=== PATIENT | female | born 1945 | race Caucasian/White ===

== ENCOUNTER 2022-11-01 10:57 | Inpatient (IN) ==
--- NOTE | 2022-11-01 11:41 | Emergency Department Note ---
Impression & Plan Bilateral pulmonary embolism, Hypoxia ED Provider Note Provider: Daniel Stahl MD DATE OF SERVICE: 11/01/2022 CHIEF COMPLAINT: Shortness of breath HISTORY OF PRESENT ILLNESS: Patient is a 77-year-old female complete a month ago diagnosed with temporal arteritis currently on steroids weaning to 30 mg daily this week presenting with concern over the last several days of developing dyspnea on exertion and some shortness of breath. No pain. Reports that she was doing well but then got the flu shot on Saturday. Since then has developed shortness of breath. They when ambulating with some exertion. Denies any chest pain. No syncope reported. A bit of a dry cough. No significant sinus congestion or sore throat. No true fevers reported. Denies significant abdominal discomfort or issues. States he does have a little bit of facial swelling but that is been ongoing since has been on the steroid for her GCA. Reports that the eye vision and head symptoms she had before are resolved regarding the GCA. He is scheduled to fly out of state this coming week and wanted evaluation for this. Has been followed closely by family and friends regarding her symptoms. Denies any significant leg swelling. States she had a negative COVID test recently and would prefer not to have a repeat. Denies heart issues. Very distant smoker decades ago. Has been undergoing outpatient work-up for new onset of renal dysfunction with a creatinine of 1.8-2 new in nature. PAST MEDICAL HISTORY: As noted above MEDICATIONS: Reviewed home medications includes current prednisone taper SOCIAL HISTORY: Distant former smoker PHYSICAL EXAM: GENERAL: alert and oriented in no acute distress on stretcher Head: normocephalic and atraumatic EYES: No injection, discharge or icterus. NECK: Trachea midline. ENT: Mucous membranes pink and moist. LUNGS: Airway patent. No retractions. Breath sounds clear with good air entry bilaterally. HEART: Regular rate and rhythm. No chest wall tenderness ABDOMEN: Soft and non-tender, without guarding or rebound. SKIN: Acyanotic, warm, dry, without rashes EXTREMITIES: Without swelling, tenderness or deformity NEUROLOGICAL: No focal deficits. No aphasia. No facial droop or slurred speech. Ambulatory. EK bpm normal sinus rhythm. No PVC or PAC. No acute ST segment elevation or depression with a QTc of 466. CONTINUOUS CARDIAC MONITORING: was ordered and showed a heart rate of 70s-80s bpm in normal sinus rhythm Patient's laboratory studies and imaging reviewed. Differential includes Reactive airway disease, pneumonia, pneumothorax, COPD, CHF, infections, cardiac ischemia, pulmonary embolism, musculoskeletal, gastrointestinal, as well as other pathologies. IMPRESSION/MEDICAL DECISION MAKING: Patient well-appearing on exam. Not hypoxic at rest. Reports some dyspnea on exertion symptoms. Developed since a flu shot. Not having other neurological symptoms or weakness and doubt GBS. X-ray obtained to exclude pneumonia. Doubt pneumothorax. Family and friends of concerns for possible PE especially in light of upcoming travel. Patient's worsened renal function is a concern to use contrast. Patient again hesitant to have repeat COVID or flu testing at this point and wished to defer. EKG and troponin sent but lower suspicion this is acute ACS. Did not seem to be that consistent with heart failure. D-dimer sent as well as basic blood work and get a chest x-ray obtained. May need to pursue VQ scan. Blood work here with mild leukocytosis likely reactive in the setting of significant steroid usage. Minimal anemia 11.5. Normal platelet count. No significant electrolyte abnormality for BUN slightly elevated at 44 and a creatinine 1.5 is noted. No evidence of hepatitis. BNP within normal limits. High-sensitivity troponin minimally elevated at 25.2. While resting on room air patient oxygen levels between the high 80s and low 90s. Creatinine today of 1.57 with a GFR of 31.9. Not having active chest pain and EKG is reassuring but I wonder if slight troponin elevation may be from some transient hypoxia. CT angiogram of the chest completed with evidence of extensive bilateral pulmonary embolisms but no saddle embolism. Hypercoagulable work-up ordered as well as ultrasounds of the legs. Discussed with the patient. Given her mild hypoxia with extensive PE nature and will start on heparin drip with bolus. She is agreeable to stay which believe is reasonable given the extensive nature tonight for further monitoring. Per her wishes updated Dr. Daly via phone. Hospitalist team contacted for admission. DIAGNOSIS: Bilateral pulmonary embolisms, hypoxia DISPOSITION: Hospitalist will evaluate Patient was agreeable with this plan. Critical Care I have personally spent 36 minutes of critical care time in the direct management of this patient. This includes bedside care, interpretation of diagnostic studies, and testing, discussion with consultants, patient, and other required patient management activities. These 36 minutes is in excess of all separately billable procedures. Past Med/Surg History Social History Smoking Status: Former smoker Feels Safe at Home: Yes Allergies Allergies Allergy/AdvReac Type Severity Reaction Status Date / Time pecans Allergy Uncoded 10/31/22 16:50 Home Meds Home Medications Medication Instructions Recorded Confirmed albuterol sulfate 90 mcg/actuation 2 puff inhalation Q6H PRN other 10/31/22 11/01/22 aerosol inhaler (Ventolin HFA) alprazolam 0.5 mg tablet 0.25 mg PO HS PRN Other 10/31/22 11/01/22 calcium carbonate 1,000 mg-vitamin 1 tab PO DAILY 10/31/22 11/01/22 D3 20 mcg (800 unit) tablet cholecalciferol (vitamin D3) 50 5,000 unit PO DAILY 10/31/22 11/01/22 mcg (2,000 unit) capsule citalopram 20 mg tablet 20 mg PO DAILY 10/31/22 11/01/22 diclofenac sodium 75 mg 75 mg PO BID PRN Pain 10/31/22 11/01/22 tablet,delayed release fluticasone 250 mcg-salmeterol 50 1 inh inhalation BID 10/31/22 11/01/22 mcg/dose blistr powdr for inhalation (Advair Diskus) levothyroxine 75 mcg tablet 75 mcg PO DAILY 10/31/22 11/01/22 multivitamin 1 tab PO DAILY 10/31/22 11/01/22 pravastatin 40 mg tablet 40 mg PO DAILY 10/31/22 11/01/22 prednisone 20 mg tablet 30 mg PO DAILY 10/31/22 11/01/22 valacyclovir 1 gram tablet 1,000 mg PO TID 10/31/22 11/01/22 (Valtrex) vitamin K2 100 mcg capsule 100 mcg PO DAILY 10/31/22 11/01/22 alendronate 35 mg tablet 35 mg PO WK 11/01/22 11/01/22 nystatin 100,000 unit/mL oral See Rx Instructions .Route .COMPLEX 11/01/22 11/01/22 suspension Results & Data (ED) Vital Signs Vital Signs - 24 hr 11/01/22 10:58 11/01/22 11:51 11/01/22 11:36 Temperature 36.7 C Temperature Source Temporal Artery Scan Pulse Rate 84 86 Pulse Rate [Bilateral] 74 Pulse Rhythm Pulse Rhythm [Bilateral] Regular Respiratory Rate 20 18 Respiratory Effort / Characteristics Non-Labored Spontaneous Respiratory Depth Normal Blood Pressure 204/112 H Blood Pressure [Right Arm] 170/108 H Blood Pressure Mean 142 Blood Pressure Mean [Right Arm] 128 Pulse Oximetry 91 92 Oxygen Delivery Method Room Air Room Air Oxygen Flow Rate Sepsis Recent Fever Within 48 Hours No Sepsis New/Unexplained Change in Mental Status No Sepsis Action Taken by Nursing No Action Required 11/01/22 11:36 11/01/22 12:06 11/01/22 13:10 Temperature Temperature Source Pulse Rate 74 Pulse Rate [Bilateral] 71 Pulse Rhythm Regular Pulse Rhythm [Bilateral] Respiratory Rate 18 Respiratory Effort / Characteristics Respiratory Depth Blood Pressure Blood Pressure [Right Arm] 165/105 H Blood Pressure Mean Blood Pressure Mean [Right Arm] 125 Pulse Oximetry 92 92 95 Oxygen Delivery Method Room Air Room Air Room Air Oxygen Flow Rate Sepsis Recent Fever Within 48 Hours Sepsis New/Unexplained Change in Mental Status Sepsis Action Taken by Nursing 11/01/22 13:24 11/01/22 13:24 Temperature Temperature Source Pulse Rate Pulse Rate [Bilateral] Pulse Rhythm Pulse Rhythm [Bilateral] Respiratory Rate Respiratory Effort / Characteristics Respiratory Depth Blood Pressure Blood Pressure [Right Arm] Blood Pressure Mean Blood Pressure Mean [Right Arm] Pulse Oximetry 85 L 92 Oxygen Delivery Method Room Air Nasal Cannula Oxygen Flow Rate 2 Sepsis Recent Fever Within 48 Hours Sepsis New/Unexplained Change in Mental Status Sepsis Action Taken by Nursing Laboratory Data 11/01/22 11:45 11/01/22 11:45 Lab Results 11/01/22 11/01/22 11/01/22 Range/Units 11:45 11:45 11:45 WBC 14.37 H (4.8-10.8) K/ul RBC 3.47 L (4.20-5.40) M/uL Hgb 11.5 L (12.0-16.0) g/dl Hct 33.8 L (37.0-47.0) % MCV 97.4 (80.0-100.0) fL MCH 33.1 (25.0-34.0) pg MCHC 34.0 (32.0-36.0) g/dL RDW Std Deviation 54.6 H (36.4-46.3) fL RDW Coeff of Paulina 15.4 H (11.5-14.5) % Plt Count 174 (130-400) K/uL MPV 9.3 L (9.4-12.4) fL Immature Gran % (Auto) 1.9 % Neut % (Auto) 87.5 % Lymph % (Auto) 7.4 % [place] % (Auto) 3.1 % Eos % (Auto) 0.0 % Baso % (Auto) 0.1 % Neut # (Auto) 12.57 H (1.40-6.50) K/uL Lymph # (Auto) 1.06 L (1.20-3.40) K/uL [place] # (Auto) 0.45 (0.11-0.59) K/uL Eos # (Auto) 0.00 (0.00-0.50) K/uL Baso # (Auto) 0.02 (0.00-0.20) K/uL Immature Gran # (Auto) 0.27 H (0.01-0.20) K/uL PT 10.6 (9.0-12.0) Seconds INR 1.0 (0.9-1.1) APTT 25.1 (21.0-31.0) Seconds PTT Ratio 0.9 D-Dimer 69209 H* (0-500) ug/L FEU Sodium 138 (136-145) mmol/L Potassium 4.4 (3.5-5.1) mmol/L Chloride 101 (98-107) mmol/L Carbon Dioxide 29 (21-32) mmol/L Anion Gap 8 (3-11) BUN 44 H (6-23) mg/dl Creatinine 1.57 H (0.6-1.2) mg/dl Est Cr Clr Drug Dosing 30.5 ml/min Est GFR ( Amer) 37.0 ml/min Est GFR (Non-Af Amer) 31.9 ml/min BUN/Creatinine Ratio 28.0 H (10-20) Glucose 141 H (70-99(Fasting)) mg/dl Calcium 9.6 (8.6-10.3) mg/dl Magnesium 2.0 (1.7-2.4) mg/dl Total Bilirubin 0.5 (0.2-1.0) mg/dl AST 15 (13-39) U/L ALT 20 (7-52) U/L Alkaline Phosphatase 53 (34-104) U/L Troponin I High Sens 25.2 H (0-14) pg/ml B-Natriuretic Peptide (0-100) pg/ml Total Protein 6.6 (6.0-8.3) gm/dl Albumin 3.5 (3.4-5.0) gm/dl Globulin 3.1 (2.5-4.0) gm/dl Albumin/Globulin Ratio 1.1 (0.9-2) 11/01/22 11/01/22 Range/Units 11:45 14:52 WBC (4.8-10.8) K/ul RBC (4.20-5.40) M/uL Hgb (12.0-16.0) g/dl Hct (37.0-47.0) % MCV (80.0-100.0) fL MCH (25.0-34.0) pg MCHC (32.0-36.0) g/dL RDW Std Deviation (36.4-46.3) fL RDW Coeff of Paulina (11.5-14.5) % Plt Count (130-400) K/uL MPV (9.4-12.4) fL Immature Gran % (Auto) % Neut % (Auto) % Lymph % (Auto) % [place] % (Auto) % Eos % (Auto) % Baso % (Auto) % Neut # (Auto) (1.40-6.50) K/uL Lymph # (Auto) (1.20-3.40) K/uL [place] # (Auto) (0.11-0.59) K/uL Eos # (Auto) (0.00-0.50) K/uL Baso # (Auto) (0.00-0.20) K/uL Immature Gran # (Auto) (0.01-0.20) K/uL PT (9.0-12.0) Seconds INR (0.9-1.1) APTT (21.0-31.0) Seconds PTT Ratio D-Dimer (0-500) ug/L FEU Sodium (136-145) mmol/L Potassium (3.5-5.1) mmol/L Chloride (98-107) mmol/L Carbon Dioxide (21-32) mmol/L Anion Gap (3-11) BUN (6-23) mg/dl Creatinine (0.6-1.2) mg/dl Est Cr Clr Drug Dosing ml/min Est GFR ( Amer) ml/min Est GFR (Non-Af Amer) ml/min BUN/Creatinine Ratio (10-20) Glucose (70-99(Fasting)) mg/dl Calcium (8.6-10.3) mg/dl Magnesium (1.7-2.4) mg/dl Total Bilirubin (0.2-1.0) mg/dl AST (13-39) U/L ALT (7-52) U/L Alkaline Phosphatase (34-104) U/L Troponin I High Sens 25.1 H (0-14) pg/ml B-Natriuretic Peptide 86 (0-100) pg/ml Total Protein (6.0-8.3) gm/dl Albumin (3.4-5.0) gm/dl Globulin (2.5-4.0) gm/dl Albumin/Globulin Ratio (0.9-2) Administered Medications Discontinued Medications Ioversol (Ioversol 350 Mg 125ml Prefilled Syringe) 120 ml IV ONCE ONE Stop: 11/01/22 14:31 Last Admin: 11/01/22 14:31 Dose: 120 ml Documented By: KOURTNEY Imaging Data Radiologist's Impression: Chest X-Ray 11/01/22 11:23 SINGLE VIEW CHEST CLINICAL HISTORY: Dyspnea FINDINGS: An AP, portable, upright chest radiograph is obtained. No prior studies are available for comparison at the time of dictation. The heart is top normal for projection noting atherosclerotic calcification of the thoracic aorta. There is mild bibasilar scarring/atelectasis. The lungs and pleural spaces are otherwise clear. No pneumothorax is seen. The skeletal structures are osteopenic. The bony thorax is grossly intact. IMPRESSION: No active disease in the chest. ACT 112: Negative or not required by law. Electronically signed by: Micheal Watson M.D. 11/01/2022 12:04 PM Chest CTA 11/01/22 13:49 CT angio chest PE protocol CLINICAL HISTORY: PE, Dimer [id number], hypoxia TECHNIQUE: Multidetector row helical CT of the chest was performed with angiographic protocol. Coronal and sagittal reformations were obtained. Coronal and sagittal MIPS were obtained from the axial data set and were submitted for review. Automated dose lowering techniques and/or adjustment according to patient size were utilized for this exam. CT DOSE: 837.25 mGy.cm Comparison: None available at the time of this dictation. FINDINGS: Lungs and pleura: Normal. Heart and pericardium: Heart size is normal. No pericardial effusion. Vessels: Extensive pulmonary emboli are seen most prominently in the right upper lobe and bilateral lower lobes as well as in the distal right mainstem bronchus. Mediastinum and fifi: Unremarkable. Chest wall and lower neck: Unremarkable. Abdomen: Left adrenal nodule is seen likely representing an adenoma. Bones: Degenerative changes in the thoracic spine. IMPRESSION: Multiple lobar, segmental, and subsegmental pulmonary emboli are seen bilaterally without evidence of right heart strain. ACT 112: Negative or not required by law. Electronically signed by: Virgil Walls M.D. 11/01/2022 3:10 PM Discharge Plan Visit Data Chief Complaint: Shortness of Breath/Dyspnea Stated Complaint: SOB ED Provider: Daniel Stahl Discharge Problem: Bilateral pulmonary embolism, Hypoxia Patient Disposition: Being Evaluated by Hospitalist Forms Stand Alone Forms: My [facility] Prescriptions Prescriptions: No Action prednisone 20 mg tablet 30 mg PO DAILY Rx Instructions: Started 30 mg daily for 7 days today 11/01/22 alprazolam 0.5 mg tablet 0.25 mg PO HS PRN (Reason: Other) citalopram 20 mg tablet 20 mg PO DAILY albuterol sulfate [Ventolin HFA] 90 mcg/actuation HFA aerosol inhaler 2 puff inhalation Q6H PRN (Reason: other) pravastatin 40 mg tablet 40 mg PO DAILY levothyroxine 75 mcg tablet 75 mcg PO DAILY fluticasone propion-salmeterol [Advair Diskus] 250-50 mcg/dose blister with device 1 inh inhalation BID valacyclovir [Valtrex] 1 gram tablet 1,000 mg PO TID diclofenac sodium 75 mg tablet,delayed release (DR/EC) 75 mg PO BID PRN (Reason: Pain) vitamin K2 100 mcg capsule 100 mcg PO DAILY multivitamin Tablet 1 tab PO DAILY calcium carbonate-vitamin D3 1,000 mg-20 mcg (800 unit) tablet 1 tab PO DAILY cholecalciferol (vitamin D3) 50 mcg (2,000 unit) capsule 5,000 unit PO DAILY nystatin 100,000 unit/mL suspension See Rx Instructions .ROUTE .COMPLEX Rx Instructions: 1 ml po qid 10 days alendronate 35 mg tablet 35 mg PO WK Rx Instructions: Mondays Referrals Referrals: Giovanny Rehman [Primary Care Provider] -
--- NOTE | 2022-11-01 12:05 | XRay Report ---
SINGLE VIEW CHEST CLINICAL HISTORY: Dyspnea FINDINGS: An AP, portable, upright chest radiograph is obtained. No prior studies are available for c omparison at the time of dictation. The heart is top normal for projection noting atherosclerotic ciara cification of the thoracic aorta. There is mild bibasilar scarring/atelectasis. The lungs and pleural spaces are otherwise clear. No pneumothorax is seen. The skeletal structures are osteopenic. The bon y thorax is grossly intact. IMPRESSION: No active disease in the chest. ACT 112: Negative or not required by law. Electronically signed by: Micheal Watson M.D. 11/01/2022 12:04 PM
[2022-11-01 12:24] LABS: Basophils # (auto) 0.02 K/uL (0.00-0.20); Basophils % (auto) 0.1 %; Hematocrit (blood only) 33.8 % (37.0-47.0); Hemoglobin 11.5 g/dl (12.0-16.0); Immature Granulocytes # (auto) 0.27 K/uL (0.01-0.20); Immature Granulocytes % (auto) 1.9 %; Lymphocytes # (auto) 1.06 K/uL (1.20-3.40); Lymphocytes % (auto) 7.4 %; Mean Corpuscular Hemoglobin 33.1 pg (25.0-34.0); Mean Corpuscular Volume 97.4 fL (80.0-100.0); Mean Platelet Volume 9.3 fL (9.4-12.4); Monocytes # (auto) 0.45 K/uL (0.11-0.59); Monocytes % (auto) 3.1 %; Neutrophils # (auto) 12.57 K/uL (1.40-6.50); Neutrophils % (auto) 87.5 %; Platelet Count 174 K/uL (130-400); RDW Coefficient of Variation 15.4 % (11.5-14.5); RDW Standard Deviation 54.6 fL (36.4-46.3); Red Blood Count 3.47 M/uL (4.20-5.40); White Blood Count 14.37 K/ul (4.8-10.8)
[2022-11-01 12:41] LABS: Alanine Aminotransferase 20 U/L (7-52); Albumin Globulin Ratio 1.1 (0.9-2); Albumin Level 3.5 gm/dl (3.4-5.0); Alkaline Phosphatase 53 U/L (34-104); Anion Gap 8 (3-11); Aspartate Aminotransferase 15 U/L (13-39); Bilirubin,Total 0.5 mg/dl (0.2-1.0); Blood Urea Nitrogen 44 mg/dl (6-23); Calcium 9.6 mg/dl (8.6-10.3); Carbon Dioxide 29 mmol/L (21-32); Chloride 101 mmol/L (98-107); Creatinine Clr Calc Pharmacy 30.5 ml/min; Est GFR (Non-African American) 31.9 ml/min; Globulin 3.1 gm/dl (2.5-4.0); Glucose 141 mg/dl (70-99(Fasting)); Potassium 4.4 mmol/L (3.5-5.1); Sodium 138 mmol/L (136-145); Total Protein 6.6 gm/dl (6.0-8.3)
[2022-11-01 12:46] LABS: Troponin I High Sensitivity 25.2 pg/ml (0-14)
[2022-11-01 13:10] LABS: Partial Thromboplastin Ratio 0.9; Partial Thromboplastin Time 25.1 Seconds (21.0-31.0); Prothrombin Time 10.6 Seconds (9.0-12.0)
[2022-11-01 13:18] LABS: D Dimer 24500 ug/L FEU (0-500)
[2022-11-01] MEDS ORDERED: IOVERSOL 350 MG 125mL Prefilled Syringe IV ONE (14:30)
[2022-11-01] MEDS ORDERED: LACTATED RINGER'S 500 ML IV ONE (14:31)
[2022-11-01] MEDS ORDERED: Heparin IV Adult Wt-Based Standard WITH Bolus Protocol IV STA (14:48)
[2022-11-01] MEDS ORDERED: Heparin IV Adult Wt-Based Standard WITH Bolus Protocol IV SCH (15:00)
[2022-11-01] MEDS ORDERED: HEPARIN SOD (PORCINE) 1000 UNIT/ML IV ONE ×2 (15:03→16:30)
--- NOTE | 2022-11-01 15:12 | CT Scan Report ---
CT angio chest PE protocol CLINICAL HISTORY: PE, Dimer [id number], hypoxia TECHNIQUE: Multidetector row helical CT of the chest was performed with angiographic protocol. Rizzo l and sagittal reformations were obtained. Coronal and sagittal MIPS were obtained from the axial lorene a set and were submitted for review. Automated dose lowering techniques and/or adjustment according to patient size were utilized for this exam. CT DOSE: 837.25 mGy.cm Comparison: None available at the time of this dictation. FINDINGS: Lungs and pleura: Normal. Heart and pericardium: Heart size is normal. No pericardial effusion. Vessels: Extensive pulmonary emboli are seen most prominently in the right upper lobe and bilateral l ower lobes as well as in the distal right mainstem bronchus. Mediastinum and fifi: Unremarkable. Chest wall and lower neck: Unremarkable. Abdomen: Left adrenal nodule is seen likely representing an adenoma. Bones: Degenerative changes in the thoracic spine. IMPRESSION: Multiple lobar, segmental, and subsegmental pulmonary emboli are seen bilaterally without evidence of right heart strain. ACT 112: Negative or not required by law. Electronically signed by: Virgil Walls M.D. 11/01/2022 3:10 PM
--- NOTE | 2022-11-01 16:23 | History & Physical Report ---
Date of Service November 01, 2022 Assessment & Plan (1) Bilateral pulmonary embolism: Plan: acute pulmonary embolism. Undisclosed risk. Recent hospital stay however it was approximately 6 weeks prior. [facility] parenteral heparin evaluate for right heart strain via echocardiogram consideration to transition to a DOAC hypercoagulable laboratory serology has been sent off recent temporal arteritis diagnosed by biopsy patient is on prednisone 30 mg this will be continued patient is completed nystatin therapy for oral thrush associated with prednisone use patient will continue citalopram for depression alprazolam at bedtime for nighttime anxiety patient does not disclose that she has any long-term lung disease from her smoking history but she is on fluticasone-salmeterol which will be maintained chronic dyslipidemia which is stable maintains pravastatin patient is a full code Plan History of Present Illness Primary Care Provider: Giovanny Rehman pt presented with progressive shortness of breath. Patient was recently in [facility] approximately middle of September diagnosed with giant cell arteritis via temporal biopsy and is on tapering doses of prednisone. She states after discharge she did have bilateral leg swelling but no focal leg swelling or focal pain. She developed 1 week of progressive dyspnea and has seen outpatient providers including a negative COVID test. She reported to [facility] underwent CT angiography which reveals multiple bilateral segmental and subsegme ntal pulmonary embolisms without evidence of right heart strain on presentation. Patient has been a previous smoker quit 22 years ago she has had 1 miscarriage in her life. She does not know of any other people in her family with 5 blood clots interestingly she started herself on [id number] vitamin K to help her heart a few months ago. Allergies Allergy/AdvReac Type Severity Reaction Status Date / Time pecans Allergy Uncoded 10/31/22 16:50 Home Medications Medication Instructions Recorded Confirmed Type albuterol sulfate 90 mcg/actuation 2 puff inhalation Q6H PRN other 10/31/22 11/01/22 History aerosol inhaler (Ventolin HFA) alprazolam 0.5 mg tablet 0.25 mg PO HS PRN Other 10/31/22 11/01/22 History calcium carbonate 1,000 mg-vitamin 1 tab PO DAILY 10/31/22 11/01/22 History D3 20 mcg (800 unit) tablet cholecalciferol (vitamin D3) 50 5,000 unit PO DAILY 10/31/22 11/01/22 History mcg (2,000 unit) capsule citalopram 20 mg tablet 20 mg PO DAILY 10/31/22 11/01/22 History diclofenac sodium 75 mg 75 mg PO BID PRN Pain 10/31/22 11/01/22 History tablet,delayed release fluticasone 250 mcg-salmeterol 50 1 inh inhalation BID 10/31/22 11/01/22 History mcg/dose blistr powdr for inhalation (Advair Diskus) levothyroxine 75 mcg tablet 75 mcg PO DAILY 10/31/22 11/01/22 History multivitamin 1 tab PO DAILY 10/31/22 11/01/22 History pravastatin 40 mg tablet 40 mg PO DAILY 10/31/22 11/01/22 History prednisone 20 mg tablet 30 mg PO DAILY 10/31/22 11/01/22 History valacyclovir 1 gram tablet 1,000 mg PO TID 10/31/22 11/01/22 History (Valtrex) vitamin K2 100 mcg capsule 100 mcg PO DAILY 10/31/22 11/01/22 History alendronate 35 mg tablet 35 mg PO WK 11/01/22 11/01/22 History nystatin 100,000 unit/mL oral See Rx Instructions .Route .COMPLEX 11/01/22 11/01/22 History suspension Past Med/Surg History Medical History (Updated 11/01/22 @ 16:21 by Gabriel Murrell MD) Depression Dyslipidemia Giant cell arteritis Oral thrush Osteoporosis Social History Smoking Status: Former smoker Feels Safe at Home: Yes Review of Systems Review of Systems: mild distress and Moderate fatigue no headache, no visual changes no speech or swallowing issues no chest pain, pressure or palpitations dyspnea on exertion and nonproductive cough no abdominal pain, nausea or vomiting, diarrhea or constipation no dysuria, hematuria or frequency no focal joint pain or swelling (did have swelling approximately 1 month ago which resolved) no back pain, CVA tenderness or radicular pain no bruising, bleeding or rashes no focal signs of weakness or numbness or altered sensation no complaints of anxiety or depression.. Physical Exam Physical Exam: the patient appeared well nourished and normally developed. Vital signs as documented. Head exam is normocephalic atraumatic Neck is without JVD, thyromegaly, or carotid bruits. Lungs are clear to auscultation, no focal loss of breath sounds Cardiac exam, Rhythm is regular.. No murmurs, rubs or gallops. Abdominal exam reveals normal bowel sounds, soft non tender, no masses Extremities are nonedematous and both pedal pulses are present There are no cords there is no muscular tenderness negative Homans' sign Neurologic exam is alert and oriented, no focal loss of strength or sensation Skin is without bruises or rashes Psychologically is without concerns for anxiety or depression.. Results & Data Results & Data Vital Signs (Past 12 Hours) Vital Signs Temp Pulse Pulse Resp BP BP Pulse Ox 11/01/22 13:24 92 11/01/22 13:24 85 L 11/01/22 13:10 71 18 165/105 H 95 11/01/22 12:06 92 11/01/22 11:36 74 92 11/01/22 11:36 74 18 170/108 H 92 11/01/22 11:51 86 11/01/22 10:58 98.1 F 84 20 204/112 H 91 O2 Del Method O2 Flow Rate 11/01/22 13:24 Nasal Cannula 2 11/01/22 13:24 Room Air 11/01/22 13:10 Room Air 11/01/22 12:06 Room Air 11/01/22 11:36 Room Air 11/01/22 11:36 Room Air 11/01/22 11:51 11/01/22 10:58 Room Air Code Status & VTE Plan VTE Prophylaxis Plan VTE Prophylaxis will be ordered: Yes PG Care Time/CCT Total # of Minutes Spent Total Time Spent with Patient: Total time spent is greater than 50% in coordination of care (as documented) at patient's floor/unit and/or counseling patient: Coding Level of Care Code 90730 INT INP/OBS CARE 2/55MIN Diagnoses Bilateral pulmonary embolism I26.99
[2022-11-01] MEDS: HEPARIN SODIUM/DEXTROSE 25,000 UNITS/500 ML BAG IV SCH (16:43)
[2022-11-01] MEDS ORDERED: ONDANSETRON INJ 2 MG/ML 2 ML VIAL IV PRN (18:35)
[2022-11-01] MEDS ORDERED: ALBUTEROL HFA 8 GM INHALER INH PRN (18:35)
[2022-11-01] MEDS ORDERED: guaiFENesin/DEXTROM SYRUP 200MG/20MG 10ML UDC PO PRN (18:35)
[2022-11-01] MEDS ORDERED: SODIUM CHLORIDE 0.9% 1,000 ML IV SCH (18:35)
[2022-11-01] MEDS ORDERED: ALUMINUM/MAGNESIUM SUSP 30 ML UDC PO PRN (18:35)
--- NOTE | 2022-11-01 18:40 | Ultrasound Report ---
US venous doppler LE BI CLINICAL HISTORY: PEs, recent travel TECHNIQUE: Bilateral lower extremity real-time compression venous ultrasound with Color Doppler imagi ng. Utilizing real-time ultrasonic imaging multiple real time high-resolution ultrasonic images with compression and noncompression maneuvers of the deep venous system in addition to color doppler imagi ng were performed from the common femoral vein through the proximal calf veins. COMPARISON: None available at the time of this dictation. FINDINGS/IMPRESSION: A nearly occlusive thrombus extends from the left distal femoral vein through the popliteal and peron eal veins. No right DVT is seen. No superficial venous thrombosis is identified. ACT 112: Negative or not required by law. Electronically signed by: Virgil Walls M.D. 11/01/2022 6:39 PM
[2022-11-01] MEDS: ALPRAZolam 0.25 MG TABLET PO PRN (22:44)
[2022-11-02] LABS: Partial Thromboplastin Ratio > 4.9
[2022-11-02 00:04] LABS: Partial Thromboplastin Time > 139.0 Seconds (21.0-31.0)
[2022-11-02 05:57] LABS: Hematocrit (blood only) 31.7 % (37.0-47.0); Hemoglobin 10.5 g/dl (12.0-16.0); Mean Corpuscular Hemoglobin 32.8 pg (25.0-34.0); Mean Corpuscular Hgb Conc 33.1 g/dL (32.0-36.0); Mean Corpuscular Volume 99.1 fL (80.0-100.0); Platelet Count 166 K/uL (130-400); RDW Coefficient of Variation 15.7 % (11.5-14.5); RDW Standard Deviation 57.4 fL (36.4-46.3); White Blood Count 13.55 K/ul (4.8-10.8)
[2022-11-02] MEDS: LEVOTHYROXINE SODIUM 75 MCG TABLET PO SCH (06:15)
[2022-11-02 07:01] LABS: BUN Creatinine Ratio 21.9 (10-20); Calcium 8.3 mg/dl (8.6-10.3); Est GFR (African American) 33.8 ml/min; Est GFR (Non-African American) 29.2 ml/min; Potassium 4.1 mmol/L (3.5-5.1)
[2022-11-02] MEDS: CITALOPRAM 20 MG TAB PO SCH (08:40)
[2022-11-02] MEDS: CALCIUM 600MG + VIT D 400 IU TAB PO SCH (08:40)
[2022-11-02] MEDS: CHOLECALCIFEROL 5,000 UNITS 125 MCG TAB PO SCH (08:40)
[2022-11-02] MEDS: predniSONE 10 MG TABLET PO SCH (08:40)
[2022-11-02] MEDS: FLUTICASONE/VILANTEROL 100/25MCG 14 PUFFS/INHALER INH SCH (08:40)
[2022-11-02] MEDS: MULTIVITAMIN TAB PO SCH (08:40)
[2022-11-02] MEDS: PRAVASTATIN SOD 40 MG TAB PO SCH (08:40)
[2022-11-02] MEDS ORDERED: hydrALAZINE HCL 20 MG/ML VIAL IV PRN (08:42)
[2022-11-02 10:09] LABS: Appearance Urine Clear (Clear); Bacteria Urine Automated Negative (Negative); Bilirubin Urine Negative (Negative); Blood Urine 3+ (Negative); Cast Urine Automated 0 /lpf (0-5); Color Urine Yellow; Epithelial Cell Urine Auto >30 /lpf (0-5); Glucose Urine UA Negative (Negative); Ketones Urine Negative (Negative); Leukocyte Esterase Urine Trace (Negative); Nitrite Urine Negative (Negative); Protein Urine Trace (Negative); RBC Urine Automated >30 /hpf (0-4); Specific Gravity Urine 1.012 (1.000-1.030); Urobilinogen Urine Negative (Negative)
[2022-11-02 10:21] LABS: Partial Thromboplastin Time 57.7 Seconds (21.0-31.0)
--- NOTE | 2022-11-02 14:36 | Hospitalist Progress Note ---
Date of Service November 02, 2022 Assessment & Plan (1) Bilateral pulmonary embolism: Plan: acute pulmonary embolism. Undisclosed risk. Recent hospital stay however it was approximately 6 weeks prior. 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 patient is on prednisone 30 mg this will be continued patient is completed nystatin therapy for oral thrush associated with prednisone use patient will continue citalopram for depression alprazolam at bedtime for nighttime anxiety patient does not disclose that she has any long-term lung disease from her smoking history but she is on fluticasone-salmeterol which will be maintained chronic dyslipidemia which is stable maintains pravastatin patient is a full code Plan Admission and Anticipated Discharge Date Admission Date: November 01, 2022 Subjective patient is not feel quite back to baseline she still fairly dyspneic. Occasional needing oxygen supplementation. She does not have a cough. She had no chest pain. Her blood pressure is elevated where it typically is not Physical Exam Physical Exam: her exam is regular lungs are clear extremities despite having the positive test for DVT did not show discordance in swelling leg pain cords or any tenderness Results & Data Results & Data Vital Signs (Past 12 Hours) Vital Signs Temp Pulse Resp BP Pulse Ox O2 Del Method O2 Flow Rate 11/02/22 11:30 99.0 F 80 16 149/89 H 97 Nasal Cannula 2 11/02/22 09:00 Nasal Cannula 2 11/02/22 08:42 99.3 F 97 H 17 166/108 H 94 Nasal Cannula 1.0 11/02/22 05:49 177/119 H 11/02/22 04:03 98.8 F 86 18 183/97 H 92 Nasal Cannula 1 PG Care Time/CCT Total # of Minutes Spent Total Time Spent with Patient: Total time spent is greater than 50% in coordination of care (as documented) at patient's floor/unit and/or counseling patient: Coding Level of Care Code 26530 SUB INP/OBS CARE 2/35MIN Diagnoses Bilateral pulmonary embolism I26.99
[2022-11-02] MEDS: ACETAMINOPHEN 325 MG TAB PO PRN (18:08)
--- NOTE | 2022-11-02 18:18 | XCELERA ---
[id number] \\[id number]
[2022-11-02] MEDS ORDERED: ACETAMINOPHEN 1,000 MG/100 ML VIAL IV STA (18:22)
[2022-11-02] MEDS ORDERED: cloNIDine HCL 0.1 MG TAB PO PRN (18:24)
[2022-11-02] MEDS: APIXABAN 5 MG TABLET PO SCH (20:57)
[2022-11-02] MEDS: ALPRAZolam 0.25 MG TABLET PO PRN (20:57)
[2022-11-02] MEDS: HEPARIN SODIUM/DEXTROSE 25,000 UNITS/500 ML BAG IV SCH (22:00)
[2022-11-03] MEDS: ACETAMINOPHEN 325 MG TAB PO PRN (05:40)
[2022-11-03] MEDS: LEVOTHYROXINE SODIUM 75 MCG TABLET PO SCH (05:42)
[2022-11-03 06:23] LABS: Hematocrit (blood only) 32.1 % (37.0-47.0); Hemoglobin 11.2 g/dl (12.0-16.0); Mean Corpuscular Hemoglobin 33.8 pg (25.0-34.0); Mean Corpuscular Hgb Conc 34.9 g/dL (32.0-36.0); Mean Platelet Volume 9.2 fL (9.4-12.4); Platelet Count 191 K/uL (130-400); RDW Coefficient of Variation 15.2 % (11.5-14.5); RDW Standard Deviation 54.1 fL (36.4-46.3); Red Blood Count 3.31 M/uL (4.20-5.40); White Blood Count 13.69 K/ul (4.8-10.8)
[2022-11-03 06:40] LABS: BUN Creatinine Ratio 20.7 (10-20); Calcium 8.7 mg/dl (8.6-10.3); Creatinine Clr Calc Pharmacy 25.1 ml/min; Est GFR (African American) 29.8 ml/min; Est GFR (Non-African American) 25.7 ml/min; Potassium 3.9 mmol/L (3.5-5.1)
[2022-11-03 06:59] LABS: Folate (Folic Acid),Ser orPlas 20.14 ng/ml (>5.38)
[2022-11-03 07:01] LABS: Lyme Ab IgG w/WB Rflx Negative (Negative); Lyme Ab IgM w/WB Rflx Negative (Negative)
[2022-11-03 07:24] LABS: Partial Thromboplastin Ratio 2.8; Prothrombin Time 11.1 Seconds (9.0-12.0)
[2022-11-03 07:33] LABS: Partial Thromboplastin Time 80.2 Seconds (21.0-31.0)
[2022-11-03] MEDS ORDERED: amLODIPine BESYLATE 5 MG TAB PO ONE (07:52)
[2022-11-03] MEDS: predniSONE 10 MG TABLET PO SCH (08:56)
[2022-11-03] MEDS: CITALOPRAM 20 MG TAB PO SCH (08:56)
[2022-11-03] MEDS: FLUTICASONE/VILANTEROL 100/25MCG 14 PUFFS/INHALER INH SCH (08:56)
[2022-11-03] MEDS: CALCIUM 600MG + VIT D 400 IU TAB PO SCH (08:57)
[2022-11-03] MEDS: CHOLECALCIFEROL 5,000 UNITS 125 MCG TAB PO SCH (08:57)
[2022-11-03] MEDS: APIXABAN 5 MG TABLET PO SCH (08:57)
[2022-11-03] MEDS: MULTIVITAMIN TAB PO SCH (08:57)
[2022-11-03] MEDS: PRAVASTATIN SOD 40 MG TAB PO SCH (08:58)
--- NOTE | 2022-11-03 09:07 | Nephrology Consultation ---
Date of Consultation November 03, 2022 Assessment & Plan (1) Acute kidney injury: * Baseline Cr 1.1 per records from PCP * Increase in Cr to 1.8 occurred in the setting of GCA. Patient is now on Prednisone therapy * Renal recovery may be delayed due to IV contrast administration on admission * Urinalysis is + for hematuria, but only trace + for protein. There are no cellular casts on microscopy * Will repeat urinalysis w/ microscopy and order 24 hour urine for total protein * Will order renal US w/ arterial and venous doppler to assess for RVT * I have placed order in EMR for my staff to contact patient and schedule follow up OV * She has follow up CMP, CBC, urinalysis w/ microscopy and ESR to be completed prior to her OV (2) Bilateral pulmonary embolism: * Currently on Apixaban therapy * Hypercoagulable evaluation ordered * H/o one prior miscarriage * No FHx of clotting disorder * Recently started OTC vitamin K therapy (3) Giant cell arteritis: * Continue Prednisone 30 mg daily * Patient currently denies GARVIN, visual change or jaw claudication History of Present Illness Reason for Consultation: GERMAINE Attending Physician: Gabriel Murrell MD History of Present Illness Ms. Rios is a 77 year old white female who is seen at the request of Dr. Murrell for evaluation of GERMAINE. Information for the HPI is obtained from patient interview and review of EMR. 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 She lives in [place], [place]. Her medical history is significant for hypothyroidism, hypercholesterolemia, vitamin D deficiency and a remote h/o tobacco use. In 09/23 she developed a severe GARVIN and rigors. COVID testing was negative but ESR was markedly elevated per her report. Ms. Rios sought care at [facility]. Temporal artery biopsy was performed and returned + for GCA. She was started on Prednisone 60 mg po daily. Ms. Rios was told that her kidney function was "abnormal" during her hospitalization but reports that Nephrology evaluation was not pursued at that time. As an outpatient Ms. Rios was seen by her PCP and Prednisone was tapered to 30 mg daily. Cr was noted to have risen from 1.1 to 1.8 over a 3 month period of time. Outpatient Nephrology evaluation was scheduled but Ms. Rios developed acute dyspnea requiring EMD evaluation. She presented to [facility] 11/01/22. Cr was 1.57. CTA revealed multiple lobar, segmental and subsegmental pulmonary emboli bilaterally without evidence of R heart strain. Heparin gtt was provided and Apixaban started. Ms. Rios is subjectively improved and wishes to continue further medical evaluation as outpatient if possible. Allergies Allergy/AdvReac Type Severity Reaction Status Date / Time pecan nut Allergy Verified 11/02/22 10:05 pecans Allergy Uncoded 10/31/22 16:50 Home Medications Medication Instructions Recorded Confirmed Type albuterol sulfate 90 mcg/actuation 2 puff inhalation Q6H PRN other 10/31/22 11/01/22 History aerosol inhaler (Ventolin HFA) alprazolam 0.5 mg tablet 0.25 mg PO HS PRN Other 10/31/22 11/01/22 History calcium carbonate 1,000 mg-vitamin 1 tab PO DAILY 10/31/22 11/01/22 History D3 20 mcg (800 unit) tablet cholecalciferol (vitamin D3) 50 5,000 unit PO DAILY 10/31/22 11/01/22 History mcg (2,000 unit) capsule citalopram 20 mg tablet 20 mg PO DAILY 10/31/22 11/01/22 History diclofenac sodium 75 mg 75 mg PO BID PRN Pain 10/31/22 11/01/22 History tablet,delayed release fluticasone 250 mcg-salmeterol 50 1 inh inhalation BID 10/31/22 11/01/22 History mcg/dose blistr powdr for inhalation (Advair Diskus) levothyroxine 75 mcg tablet 75 mcg PO DAILY 10/31/22 11/01/22 History multivitamin 1 tab PO DAILY 10/31/22 11/01/22 History pravastatin 40 mg tablet 40 mg PO DAILY 10/31/22 11/01/22 History prednisone 20 mg tablet 30 mg PO DAILY 10/31/22 11/01/22 History valacyclovir 1 gram tablet 1,000 mg PO TID 10/31/22 11/01/22 History (Valtrex) vitamin K2 100 mcg capsule 100 mcg PO DAILY 10/31/22 11/01/22 History alendronate 35 mg tablet 35 mg PO WK 11/01/22 11/01/22 History nystatin 100,000 unit/mL oral See Rx Instructions .Route .COMPLEX 11/01/22 11/01/22 History suspension apixaban 5 mg (74 tabs) tablets in 5 mg PO BID #74 ea 11/02/22 Rx a dose pack (Eliquis) amlodipine 5 mg tablet 5 mg PO DAILY #30 tabs 11/03/22 Rx amoxicillin 500 mg capsule 500 mg PO TID #10 caps 11/03/22 Rx apixaban 5 mg tablet (Eliquis) 5 mg PO BID #60 tabs 11/03/22 Rx Patient History Medical History (Updated 11/03/22 @ 16:21 by Tevin Urrutia MD) Depression Dyslipidemia Giant cell arteritis Oral thrush Osteoporosis Social History Smoking Status: Former smoker Tobacco Type: Cigarettes Hx Alcohol Use: Yes Hx Substance Use: No Preferred Language: [place] Communication Ability: Effective Clinical Staff Educator Required: No Beliefs That Will Affect Care: None Current Living Situation: Alone Feels Safe at Home: Yes Assistive Devices: None Review of Systems Constitutional: no fever Eyes: no problem reported Ear, Nose, Mouth, Throat: no problem reported Respiratory: no cough and no dyspnea Cardiovascular: no chest pain Gastrointestinal: no abdominal pain, no vomiting and no diarrhea/loose stools Genitourinary: no dysuria, no hematuria and no flank pain denies foamy urine Integumentary: no rash Neurologic: no confusion Physical Exam Constitutional: not in distress Eyes: PERRL, conjunctivae normal, anicteric sclerae ENMT: external ear and nose normal, oropharynx normal Neck: trachea midline, no thyromegaly Respiratory: normal respiratory effort, lungs clear to auscultation Cardiovascular: RRR, no murmur, no edema Gastrointestinal (Abdomen): normal bowel sounds, soft, nontender, no hepatosplenomegaly Skin: no rashes, warm and dry Neurologic: Speech / Cognition: normal speech and normal cognition Psychiatric: Affect: euthymic affect Results & Data Vital Signs (Past 12 Hours) Vital Signs Temp Pulse Pulse Resp BP BP Pulse Ox 11/03/22 08:04 72 11/03/22 07:55 36.7 C 74 17 154/88 H 93 11/03/22 04:01 36.7 C 77 20 176/106 H 93 11/02/22 22:00 89 11/02/22 22:00 11/03/22 00:00 36.6 C 85 16 151/83 H 91 O2 Del Method O2 Flow Rate 11/03/22 08:04 11/03/22 07:55 Room Air 11/03/22 04:01 Room Air 11/02/22 22:00 11/02/22 22:00 Nasal Cannula 1 11/03/22 00:00 Room Air Laboratory Results Laboratory Tests 11/01/22 11/01/22 11/01/22 11:45 11:45 11:45 WBC Hgb Hct Plt Count INR D-Dimer 18614 H* Protein C Activity Protein S Activity Antithrombin III Activ Factor V Leiden Mutat Factor V Leiden Interp Sodium Potassium Chloride Carbon Dioxide BUN Creatinine 1.57 H Glucose Calcium B-Natriuretic Peptide 86 Vitamin B12 Folate Homocysteine Urine Appearance Ur Specific [place] Urine Protein Urine Glucose (UA) Urine Blood Urine RBC (Auto) Lyme Disease IgG Ab Lyme Disease IgM Ab 11/01/22 11/01/22 11/01/22 14:52 14:52 14:52 WBC Hgb Hct Plt Count INR D-Dimer Protein C Activity Pending Protein S Activity Pending Antithrombin III Activ Pending Factor V Leiden Mutat Pending Factor V Leiden Interp Pending Sodium Potassium Chloride Carbon Dioxide BUN Creatinine Glucose Calcium B-Natriuretic Peptide Vitamin B12 Folate Homocysteine Pending Urine Appearance Ur Specific [place] Urine Protein Urine Glucose (UA) Urine Blood Urine RBC (Auto) Lyme Disease IgG Ab Lyme Disease IgM Ab 11/02/22 11/02/22 11/03/22 05:22 09:30 05:26 WBC 13.69 H Hgb 11.2 L Hct 32.1 L Plt Count 191 INR D-Dimer Protein C Activity Protein S Activity Antithrombin III Activ Factor V Leiden Mutat Factor V Leiden Interp Sodium Potassium Chloride Carbon Dioxide BUN Creatinine 1.69 H Glucose Calcium B-Natriuretic Peptide Vitamin B12 Folate Homocysteine Urine Appearance Clear Ur Specific [place] 1.012 Urine Protein Trace H Urine Glucose (UA) Negative Urine Blood 3+ H Urine RBC (Auto) >30 H Lyme Disease IgG Ab Lyme Disease IgM Ab 11/03/22 11/03/22 11/03/22 05:26 05:26 05:26 WBC Hgb Hct Plt Count INR D-Dimer Protein C Activity Protein S Activity Antithrombin III Activ Factor V Leiden Mutat Factor V Leiden Interp Sodium 137 Potassium 3.9 Chloride 101 Carbon Dioxide 30 BUN 39 H Creatinine 1.88 H Glucose 99 Calcium 8.7 B-Natriuretic Peptide Vitamin B12 493 Folate 20.14 Homocysteine Urine Appearance Ur Specific [place] Urine Protein Urine Glucose (UA) Urine Blood Urine RBC (Auto) Lyme Disease IgG Ab Negative Lyme Disease IgM Ab Negative 11/03/22 05:27 WBC Hgb Hct Plt Count INR 1.0 D-Dimer Protein C Activity Protein S Activity Antithrombin III Activ Factor V Leiden Mutat Factor V Leiden Interp Sodium Potassium Chloride Carbon Dioxide BUN Creatinine Glucose Calcium B-Natriuretic Peptide Vitamin B12 Folate Homocysteine Urine Appearance Ur Specific [place] Urine Protein Urine Glucose (UA) Urine Blood Urine RBC (Auto) Lyme Disease IgG Ab Lyme Disease IgM Ab Diagnostic Findings 11/01/22 CXR: No active disease in the chest 11/01/22 CTA of chest: Extensive pulmonary emboli are seen most prominently in the right upper lobe and bilateral lower lobes as well as in the distal right mainstem bronchus. No evidence of R heart strain 11/01/22 LE duplex: A nearly occlusive thrombus extends from the left distal femoral vein through the popliteal and peroneal veins. No right DVT is seen. No superficial venous thrombosis is identified. PG Care Time/CCT Total # of Minutes Spent Total Time Spent with Patient: Total time spent is greater than 50% in coordination of care (as documented) at patient's floor/unit and/or counseling patient: Coding Level of Care Code 09414 IN/OBS CONSULT LVL 5,80M Diagnoses Acute kidney injury N17.9 Bilateral pulmonary embolism I26.99 Giant cell arteritis M31.6
--- NOTE | 2022-11-03 14:47 | Discharge Summary ---
Date of Service November 03, 2022 Admission HPI Per Admitting Provider pt presented with progressive shortness of breath. Patient was recently in [facility] approximately middle of September diagnosed with giant cell arteritis via temporal biopsy and is on tapering doses of prednisone. She states after discharge she did have bilateral leg swelling but no focal leg swelling or focal pain. She developed 1 week of progressive dyspnea and has seen outpatient providers including a negative COVID test. She reported to [facility] underwent CT angiography which reveals multiple bilateral segmental and subsegmental pulmonary embolisms without evidence of right heart strain on pre sentation. Patient has been a previous smoker quit 22 years ago she has had 1 miscarriage in her life. She does not know of any other people in her family with 5 blood clots interestingly she started herself on [id number]-[id number] vitamin K to help her heart a few months ago. Principal Diagnosis Pulmonary embolism Chronic kidney disease stage III Strep UTI present on admission Discharge Exam Patient awake and alert she has no chest pain she is not dyspneic Cardiac exam is regular Lung exam is clear without wheezes or crackles Extremities particularly the left lower extremity have no changes of swelling pain tenderness cords etc. Discharge Data Allergies Allergy/AdvReac Type Severity Reaction Status Date / Time pecan nut Allergy Verified 11/02/22 10:05 pecans Allergy Uncoded 10/31/22 16:50 Consultations 11/01/22 15:11 ED Decision to Admit Stat 11/03/22 08:45 Consult Nephrology Routine Ordered Studies Chest X-Ray 11/01/22 11:23 SINGLE VIEW CHEST CLINICAL HISTORY: Dyspnea FINDINGS: An AP, portable, upright chest radiograph is obtained. No prior studies are available for comparison at the time of dictation. The heart is top normal for projection noting atherosclerotic calcification of the thoracic aorta. There is mild bibasilar scarring/atelectasis. The lungs and pleural spaces are otherwise clear. No pneumothorax is seen. The skeletal structures are osteopenic. The bony thorax is grossly intact. IMPRESSION: No active disease in the chest. ACT 112: Negative or not required by law. Electronically signed by: Micheal Watson M.D. 11/01/2022 12:04 PM Chest CTA 11/01/22 13:49 CT angio chest PE protocol CLINICAL HISTORY: PE, Dimer [id number], hypoxia TECHNIQUE: Multidetector row helical CT of the chest was performed with angiographic protocol. Coronal and sagittal reformations were obtained. Coronal and sagittal MIPS were obtained from the axial data set and were submitted for review. Automated dose lowering techniques and/or adjustment according to patient size were utilized for this exam. CT DOSE: 837.25 mGy.cm Comparison: None available at the time of this dictation. FINDINGS: Lungs and pleura: Normal. Heart and pericardium: Heart size is normal. No pericardial effusion. Vessels: Extensive pulmonary emboli are seen most prominently in the right upper lobe and bilateral lower lobes as well as in the distal right mainstem bronchus. Mediastinum and fifi: Unremarkable. Chest wall and lower neck: Unremarkable. Abdomen: Left adrenal nodule is seen likely representing an adenoma. Bones: Degenerative changes in the thoracic spine. IMPRESSION: Multiple lobar, segmental, and subsegmental pulmonary emboli are seen bilaterally without evidence of right heart strain. ACT 112: Negative or not required by law. Electronically signed by: Virgil Walls M.D. 11/01/2022 3:10 PM Venous Doppler Study 11/01/22 14:48 US venous doppler LE CLINICAL HISTORY: PEs, recent travel TECHNIQUE: Bilateral lower extremity real-time compression venous ultrasound with Color Doppler imaging. Utilizing real-time ultrasonic imaging multiple real time high-resolution ultrasonic images with compression and noncompression maneuvers of the deep venous system in addition to color doppler imaging were performed from the common femoral vein through the proximal calf veins. COMPARISON: None available at the time of this dictation. FINDINGS/IMPRESSION: A nearly occlusive thrombus extends from the left distal femoral vein through the popliteal and peroneal veins. No right DVT is seen. No superficial venous thrombosis is identified. ACT 112: Negative or not required by law. Electronically signed by: Virgil Walls M.D. 11/01/2022 6:39 PM Hospital Course (1) Bilateral pulmonary embolism: acute pulmonary embolism. Undisclosed risk. Recent hospital stay however it was approximately 6 weeks prior. initially started on parenteral heparin will transition to Eliquis on the evening of 11/02/2022 echocardiogram reading is with preserved ejection fraction no regional wall motion abnormalities and no signs of right-sided heart failure pulmonary hypertension hypercoagulable laboratory serology has been sent off elevated troponin without upward trend-demand ischemia recent temporal arteritis diagnosed by biopsy patient is on prednisone 30 mg this will be continued patient is completed nystatin therapy for oral thrush associated with prednisone use patient will continue citalopram for depression alprazolam at bedtime for nighttime anxiety patient does not disclose that she has any long-term lung disease from her smoking history but she is on fluticasone-salmeterol which will be maintained chronic dyslipidemia which is stable maintains pravastatin Chronic kidney disease stage III with slight worsening of creatinine likely due to IV contrast. Patient was hydrated postcontrast. Patient was seen by nephrology consultation and 24-hour urine for protein was ordered. Patient did have some mild hematuria and proteinuria on urine dip but no evidence of casts or active urine sediment. Renal Doppler was ordered prior to discharge the final report is not yet generated at this time Incidentally noted streptococcal urinary tract infection was noted patient was discharged on 3 days of amoxicillin 500 3 times daily patient is a full code Plan Total Time Total Time Spent Total Time Spent (In Minutes): It required greater than 30 minutes to prepare this patient for discharge Discharge Plan Discharge Items Patient Disposition: Home - Self-Care Reason For Visit: PULMONARY EMBOLISM Discharge Diagnosis: pulmonary embolism ckd 3 uncontrolled hypertension Activity: Per Instructions section Activity Comment: gradually increase activity Non-emergency contact: Primary Care Provider and Specialist Call non-emergency contact if: your symptoms worsen Follow-up/Referrals: Giovanny Rehman [Primary Care Provider] - (Please make a follow up appointment with you PCP within 5 - 7 days.) Diet: Low Sodium (2gm) Ambulatory Orders: Chloride 24 hour Urine (Routine) Timeframe: 2 Days Location: Determined by Patient Ordered By: Gabriel Denise Attending Provider Instructions: for your blood pressure, consider a low salt diet, reduce or eliminate caffeine and alcohol, once recovered from embolism consider starting walking or mild cardio of some kind Please complete 24 urine collection and return it to [facility] Medication Instructions: Your condition is typically treated with an anticoagulant. Anticoagulants will thin your blood to help prevent new clots. * You should take her medication exactly as directed. * Never skip a dose. * Never take a double dose. If you miss a dose, take it as soon as you remember. Call your Primary Care doctor if you experience any of the following: * Swelling or Pain in your leg * Sudden, continuous pain deep in a muscle * Pain that worsens when you are active or when you stand still for a long time * Chest Pain * Sudden Shortness of Breath * Rapid or pounding heart beat * Fainting * Dizziness * Cough with blood or bloody sputum * Sweating more than normal * Bruises * Heavy or uncontrolled bleeding * Blood in your urine, stool or vomit * Black or tarry stools Caring for Your Self at Home: * Avoid sitting, standing or lying down for long periods without moving your legs and feet * When traveling by car, stop to get out and move around at least once every 3 h ours * On long airplane, train or bus rides, get up and move around when possible * If you can't get up, wiggle your toes and tighten your calves to keep your blood moving Follow Up: It is important for you to keep your follow up appointments with your medical provider. Pending Studies at Discharge: Yes Studies:: 24 hour urine Stand-Alone Forms: My [facility], Smoking Cessation Medications and DC Order Prescriptions: New Eliquis 5 mg (74 tabs) tablets,dose pack 5 mg PO BID Qty: 74 0RF amlodipine 5 mg tablet 5 mg PO DAILY Qty: 30 2RF Eliquis 5 mg tablet 5 mg PO BID Qty: 60 4RF Rx Instructions: this is the continuation RX after initial Rx is completed amoxicillin 500 mg capsule 500 mg PO TID Qty: 10 0RF Continued prednisone 20 mg tablet 30 mg PO DAILY Rx Instructions: Started 30 mg daily for 7 days today 11/01/22 alprazolam 0.5 mg tablet 0.25 mg PO HS PRN (Reason: Other) citalopram 20 mg tablet 20 mg PO DAILY albuterol sulfate [Ventolin HFA] 90 mcg/actuation HFA aerosol inhaler 2 puff inhalation Q6H PRN (Reason: other) pravastatin 40 mg tablet 40 mg PO DAILY levothyroxine 75 mcg tablet 75 mcg PO DAILY fluticasone propion-salmeterol [Advair Diskus] 250-50 mcg/dose blister with device 1 inh inhalation BID valacyclovir [Valtrex] 1 gram tablet 1,000 mg PO TID diclofenac sodium 75 mg tablet,delayed release (DR/EC) 75 mg PO BID PRN (Reason: Pain) vitamin K2 100 mcg capsule 100 mcg PO DAILY multivitamin Tablet 1 tab PO DAILY calcium carbonate-vitamin D3 1,000 mg-20 mcg (800 unit) tablet 1 tab PO DAILY cholecalciferol (vitamin D3) 50 mcg (2,000 unit) capsule 5,000 unit PO DAILY nystatin 100,000 unit/mL suspension See Rx Instructions .ROUTE .COMPLEX Rx Instructions: 1 ml po qid 10 days alendronate 35 mg tablet 35 mg PO WK Rx Instructions: Mondays Discharge Orders: Discharge Order (Routine); Ordered 11/03/22 Ordered By: Gabriel Abdullahi/Other Patient Handouts: Apixaban Oral Tablet, Amlodipine Oral Tablet, Pulmonary Embolism Admission Data Admit Date/Time: 11/01/22 16:15 Attending Provider: Gabriel Murrell Admit Provider: Gabriel Murrell Primary Care Provider: Giovanny Rehman Other Providers: Gabriel Murrell ; Tevin Urrutia Other Interventions: Discharge Summary Assessment (RN) Last Done: 11/03/22 13:46 Coding Level of Care Code 81057 INP/OBS DISCH >30 MIN Diagnoses Bilateral pulmonary embolism I26.99
[2022-11-05] MEDS ORDERED: ALENDRONATE SODIUM 70 MG TAB PO SCH (06:30)
--- NOTE | 2022-11-05 14:40 | Electrocardiogram Report ---
Test Reason : Blood Pressure : / mmHG Vent. Rate : 074 BPM Atrial Rate : 074 BPM P-R Int : 146 ms QRS Dur : 088 ms QT Int : 420 ms P-R-T Axes : 057 -21 044 degrees QTc Int : 466 ms Normal sinus rhythm Normal ECG No previous ECGs available Confirmed by Les Quiles ([id number]) on 11/05/2022 2:40:14 PM Referred By: REFERRED SELF Confirmed By:Les Quiles
[2022-11-05 23:33] LABS: Anti-Thrombin III Activity 101 % normal (80-135); Protein S Functional(Activity) 97 % normal (60-140)
[2022-11-08 17:52] LABS: Factor 5 Mutation NEGATIVE
== END 2022-11-03 16:41 | disposition home or self-care (01) | DRG 176 ==
LOC: ED 10:57 → 4W 16:15